=== PATIENT | male | born 1945 ===

== ENCOUNTER 2023-11-09 09:06 | Emergency (ER) | payer MEDICARE, OTHER, SELFPAY ==
[2023-11-09 09:27] VITALS: BP 127/75; PULSE 69; RESP 18; TEMP 36.6; O2SAT 97; BMI 27.0
--- NOTE | 2023-11-09 10:07 | ED_ITS ---
HPI - General Adult General Chief complaint: Urogenital Problems, Male Stated complaint: UTI symptoms Time Seen by Provider: 11/09/23 09:08 History of Present Illness HPI narrative: 69 year white male with history of prostatism with urinary retention, saw couple of blood tinged mucus the materials today and was concerned about an infection. He is seeing Urology in follow-up in [place] in the next few weeks, he is doing self catheterization 3 times a day. No rigors or chills no fever no back pain. Related Data Home Medications ?Medication ?Instructions ?Recorded ?Confirmed amlodipine 10 mg tablet 10 mg PO DAILY 11/09/23 11/09/23 aspirin 81 mg chewable tablet 81 mg PO DAILY 11/09/23 11/09/23 (Aspirin Childrens) loratidine PRN 11/09/23 metoprolol tartrate 100 mg tablet 100 mg PO BID 11/09/23 11/09/23 tamsulosin 0.4 mg capsule 0.8 mg PO DAILY 11/09/23 11/09/23 Previous Rx's ?Medication ?Instructions ?Recorded ciprofloxacin HCl 250 mg tablet 250 mg PO BID #14 tabs 11/09/23 (Cipro) Allergies Allergy/AdvReac Type Severity Reaction Status Date / Time ethinyl estradiol Allergy Mild Sneezing Verified 11/09/23 09:41 [From Seasonale ()] levonorgestrel Allergy Mild Sneezing Verified 11/09/23 09:41 [From Seasonale (91)] Review of Systems Status of ROS: Reports: 6 or more systems reviewed and unremarkable except as noted in History and below PFSH PFSH Social History Smoking Status: Smoker, status unknown Do you use any of these nicotine containing products: E-Cigarettes Non-prescribed substance use: denies use Exam Narrative: Exam Narrative: Objective: Patient is afebrile with no abdominal findings or CVA tenderness. His bladder scan shows low mono urine. Const: Vital Signs, click to edit/add: Vital Signs - 24 hr 11/09/23 09:27 Temperature 97.9 F Pulse Rate [Pulse Oximeter] 69 Respiratory Rate 18 Blood Pressure [Le ft Upper Arm] 127/75 Pulse Oximetry 97 Oxygen Delivery Me thod Room Air Course Vital Signs Vital signs: Initial Vital Signs Temperature 97.9 F 11/09/23 09:27 Temperature Source Temporal Artery Scan 11/09/23 09:27 Pulse Rate 69 11/09/23 09:27 Respiratory Rate 18 11/09/23 09:27 Blood Pressure 127/75 11/09/23 09:27 Blood Pressure Mean 92 11/09/23 09:27 Blood Pressure Position Sitting 11/09/23 09:27 Pulse Oximetry 97 11/09/23 09:27 Oxygen Delivery Method Room Air 11/09/23 09:27 Vital Signs Temperature 97.9 F 11/09/23 09:27 Pulse Rate 69 11/09/23 09:27 Respiratory Rate 18 11/09/23 09:27 Blood Pressure 127/75 11/09/23 09:27 Pulse Oximetry 97 11/09/23 09:27 Oxygen Delivery Method Room Air 11/09/23 09:27 Temperature 97.9 F 11/09/23 09:27 Pulse Rate 69 11/09/23 09:27 Respiratory Rate 18 11/09/23 09:27 Blood Pressure 127/75 11/09/23 09:27 Pulse Oximetry 97 11/09/23 09:27 Oxygen Delivery Method Room Air 11/09/23 09:27 Medical Decision Making MDM Narrative Medical decision making narrative: [age] year white male with recurrent self catheterization for prostatism, with some bloody discharge, concern for infection. I think could be greer to cover him with antibiotic will given Cipro 500 b.i.d. x7 days, continue to self cath, follow-up with Urology as indicated, return if fever chills back pain or other concern. He has were comfortable plan. Lab Data Labs: Lab Results 11/09/23 Range/Units 09:54 Urine Color Yellow (Yellow) Urine Appearance Cloudy A (Clear) Urine pH 5.5 (5.0-8.5) Ur Specific Manson 1.015 (1.000-1.030) Urine Protein 2+ A (Negative) Urine Glucose (UA) Negative (Negative) Urine Ketones 1+ A (Negative) Urine Blood 3+ A (Negative) Urine Nitrite Positive A (Negative) Urine Bilirubin Negative (Negative) Urine Urobilinogen 1.0 (0.2-1.0) Ur Leukocyte Esterase 2+ A (Negative) Urine RBC 50-100 A (0-2) Urine WBC 25-50 A (0-5) Urine WBC Clumps Few A (None) Ur Squamous Epith Cells Few (None-Few) Urine Bacteria Many A (None) Discharge Plan Discharge Clinical Impression: Urethritis, Prostatism Patient Disposition: Home w/ Parent or Adult Condition: Stable Instructions: Urinary Tract Infection in Men (DC) Additional Instructions: Continue self catheterization, follow-up with Urology as indicated, take antibiotic for the next week. Return if problems Activity Level: No Restrictions Discharge Diet: Regular Prescriptions: New ciprofloxacin HCl [Cipro] 250 mg tablet 250 mg PO BID Qty: 14 0RF No Action metoprolol tartrate 100 mg tablet 100 mg PO BID tamsulosin 0.4 mg capsule 0.8 mg PO DAILY amlodipine 10 mg tablet 10 mg PO DAILY aspirin [Aspirin Childrens] 81 mg tablet,chewable 81 mg PO DAILY loratidine PRN Patient Comments: seasonal spring and fall Stand Alone Forms: Observe Medical Info Instructions
[2023-11-09 10:19] LABS: Bilirubin Urine Negative (Negative); Blood Urine 3+ (Negative); Color Urine Yellow (Yellow); Glucose Urine Negative (Negative); Ketones Urine 1+ (Negative); Leukocyte Esterase Urine 2+ (Negative); Nitrite Urine Positive (Negative); Protein Urine 2+ (Negative); Specific Gravity Urine 1.015 (1.000-1.030); pH Urine 5.5 (5.0-8.5)
[2023-11-09 10:23] LABS: Appearance Urine Cloudy (Clear)
[2023-11-09 10:43] LABS: Bacteria Urine Many; RBC Urine 50-100 (0-2); Squamous Epithelial Cell Urine Few (None-Few); WBC Clumps Urine Few; WBC Urine 25-50 (0-5)
== END 2023-11-09 10:39 | disposition home or self-care (01) ==
PROVIDERS: Emergency Provider Family Medicine; PCP Family Medicine
DX: N34.2 Other urethritis (principal); N40.0 Benign prostatic hyperplasia without lower urinary tract symptoms
CPT/HCPCS: 81001; 81003; 87086; 87186; 99284